=== PATIENT | female | born 1995 | race Asian ===

== ENCOUNTER 2022-04-07 21:56 | Emergency (ER) | payer BC, OTHER ==
[~2022-04-07] VITALS: Ht 160 cm; Wt 66.2 kg
[2022-04-07] MEDS ORDERED: KETO10TA2 PO (22:15)
[2022-04-07] MEDS ORDERED: KETOROLAC TROMETHAMINE INJ 60 MG/2 ML VIAL IM ONE ×2 (22:30→23:09)
[2022-04-08 00:20] VITALS: BP 131/77
--- NOTE | 2022-04-08 00:20 | NUR ---
Patient discharged to home in stable condition. Written and verbal after care instructions given. Patient verbalizes understanding of instruction.
== END 2022-04-08 00:21 | disposition home or self-care (01) ==
LOC: ER 21:58
DX: M54.50 Low back pain, unspecified (principal); V49.49XA Driver injured in collision with other motor vehicles in traffic accident, initial encounter; Y93.89 Activity, other specified; Y92.413 State road as the place of occurrence of the external cause; Y99.8 Other external cause status
CPT/HCPCS: 99283; 96372; 72110; J1885